=== PATIENT | female | born 2000 | race Caucasian/White ===

== ENCOUNTER 2024-06-06 00:56 | Emergency (ER) | payer OTHER ==
[2024-06-06 01:15] VITALS: RESP 20; TEMP 97.3; O2SAT 99
--- NOTE | 2024-06-06 01:25 | ERPHSYRPT ---
- History of Present Illness Time Seen by Provider: 06/06/24 01:15 Source: patient Exam Limitations: no limitations Patient Subjective Stated Complaint: pt states she walking down the stairs and stepped on a wrench and fell down the stairs Triage Nursing Assessment: pt came into the er via wheelchair; pt transferred self to the cot; pt is axo x4; c/o left ankle injury; pt states 7/10 pain to left ankle, pain worse with standing; swelling present to left ankle; strong left pedal pulse; good cap refill to [facility]; skin PDW; no respiratory distress present; vitals wnl Physician History: 23yo f presents via private vehicle for left ankle injury. 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 Pt reports she scraped her ankle on the stair and it has been hurting and slightly swollen since, she has pain w/ weight bearing but was able to ambulate w/ assistance. Pt does report she hit the back of her head on the concrete, denies any LOC, does not take blood thinners, currently endorses mild TRIVEDI but denies any nausea, vision changes, vomiting, numbness/tingling in extremities. Method of Injury: fell Occurred: just prior to arrival Quality: constant Severity of Pain-Max: moderate Severity of Pain-Current: moderate Lower Extremities Pain: foot: left, ankle: left Allergies/Adverse Reactions: No Known Drug Allergies Allergy (Unverified 06/06/24 01:05) Home Medications: No Reportable Medications [No Reported Medications] 06/06/24 [History] Hx Tetanus, Diphtheria Vaccination/Date Given: No (unsure) Hx Influenza Vaccination/Date Given: No Hx Pneumococcal Vaccination/Date Given: No Immunizations Up to Date: No Travel Risk - International Travel Have you traveled outside of the country in past 3 weeks: No - Emerging Infectious Disease Are you exhibiting symptoms associated with any current EIDs: No - Review of Systems Constitutional: No Symptoms Eyes: No Symptoms Respiratory: No Symptoms Cardiac: No Symptoms Musculoskeletal: Fall, Injury - Past Medical History Pertinent Past Medical History: No - Past Surgical History Past Surgical History: No - Female History Hx Last Menstrual Period: on depot shot Hx Now: No - Social History Smoking Status: Light tobacco smoker Exposure to second hand smoke: Yes Drug Use: none - Social Determinants of Health Will the patient participate in the screening: Yes Do you worry about a steady place to live?: No Do you have any problems with any of the following?: No known problems In the past 12 months,have you had to go without utilities?: No Transportation Issues: No Has anyone in your support network made you feel unsafe?: No Have you or anyone in your house had to go without enough: No - Nursing Vital Signs Nursing Vital Signs: Initial Vital Signs Temperature 97.3 F 06/06/24 01:05 Pulse Rate 85 06/06/24 01:05 Respiratory Rate 20 06/06/24 01:05 Blood Pressure 128/89 06/06/24 01:05 O2 Sat by Pulse Oximetry 99 06/06/24 01:05 Pain Scale Pain Intensity 7 - Physical Exam General Appearance: no apparent distress, alert Eyes, Ears, Nose, Throat Exam: normal ENT inspection, TMs normal Neck Exam: normal inspection, non-tender, full range of motion Cardiovascular/Respiratory Exam: chest non-tender, normal breath sounds, regular rate/rhythm Legs Exam: bilateral leg: non-tender, normal inspection, no evidence of injury Knees Exam: bilateral knee: non-tender, normal inspection, no evidence of injury Ankle Exam: right ankle: non-tender, normal inspection, normal range of motion, no evidence of injury, left ankle: abrasions/laceration (small abrasion over lateral malleolous ), bone tenderness (minimal over lateral malleolous), swelling (minimal on lateral aspect of ankle) Foot Exam: right foot: non-tender, normal inspection, normal range of motion, no evidence of injury, left foot: soft tissue tenderness, swelling Neuro/Tendon Exam: normal sensation, normal motor functions, normal tendon functions Mental Status Exam: alert, oriented x 3, cooperative, other (EOMI, PERRLA, no pronator drift, no nystagmus appreciated, sensation and strength equal and intact diffusely ) Skin Exam: normal color SpO2 Interpretation: normal SpO2: 99 O2 Delivery: Room Air Ordered Tests: Active Orders 24 hr Category Date Time Status Cold Therapy Application ROUTINE Care 06/06/24 01:23 Active ANKLE (3 VIEWS) Stat Exams 06/06/24 01:20 Taken FOOT (MINIMUM 3 VIEWS) Stat Exams 06/06/24 01:20 Taken Medication Summary Discontinued Medications Generic Name Dose Route Start Last Admin Trade Name Marci PRN Reason Stop Dose Admin Acetaminophen 975 mg 06/06/24 01:20 06/06/24 01:27 Acetaminophen 325 Mg Tablet PO 06/06/24 01:21 975 mg STAT ONE Administration Acetaminophen Confirm 06/06/24 01:26 Acetaminophen 325 Mg Tablet Administered 06/06/24 01:27 Dose 975 mg .ROUTE .STK-MED ONE - Progress Progress: improved, pain not gone completely Progress Note: 06/06/24 01:46 no acute fracture on imaging TRIVEDI improved some w/ tylenol will dc home w/ ADAM wrap for ankle and crutches to aid w/ ambulation recommend ice and elevation when able, continue to wear ADAM wrap as needed for support tylenol/ibuprofen for pain return to ED if: become unable to bear weight completely, develop change in sensation in the left foot, develop confusion/vision changes/become difficult to arouse Counseled pt/family regarding: diagnosis, need for follow-up, rad results Medical Desision Making - Diagnostic Testing Diagnostic test were ordered, analyzed, and reviewed by me: Yes Radiological Interpretation: Interpreted by me, Reviewed by me - Risk of complications Minimal Risk: Minimal risk of morbidity - Departure Departure Disposition: Home Clinical Impression: Left ankle sprain Qualifiers: Encounter type: initial encounter Involved ligament of ankle: unspecified ligament Qualified Code(s): S93.402A - Sprain of unspecified ligament of left ankle, initial encounter Condition: Stable Critical Care Time: No Additional Instructions: will dc home w/ ADAM wrap for ankle and crutches to aid w/ ambulation recommend ice and elevation when able, continue to wear ADAM wrap as needed for support tylenol/ibuprofen for pain return to ED if: become unable to bear weight completely, develop change in sensation in the left foot, develop confusion/vision changes/become difficult to arouse
[2024-06-06] MEDS ORDERED: TYLENOL 325 MG ONE (01:26)
[2024-06-06] MEDS: TYLENOL 325 MG PO ONE (01:27)
[2024-06-06 01:54] VITALS: BP 133/94; PULSE 84
--- NOTE | 2024-06-06 08:54 | XRAY ---
Indication: Pain following fall. Comparison: None 3 nonweightbearing views left foot demonstrates incidental subcentimeter anterior calcaneal bone island. No other bony, articular, or soft tissue abnormalities.
--- NOTE | 2024-06-06 08:54 | XRAY ---
Indication: Pain following fall. Comparison: None 3 view left ankle demonstrates incidental subcentimeter anterior calcaneal bone island. No other bony, articular, or soft tissue abnormalities.
== END 2024-06-06 01:53 | disposition home or self-care (01) ==
LOC: ED 00:56
DX: S93.402A Sprain of unspecified ligament of left ankle, initial encounter (principal); W10.8XXA Fall (on) (from) other stairs and steps, initial encounter; R51.9 Headache, unspecified; Z72.0 Tobacco use
CPT/HCPCS: 73610; 73630; 99283; A9270-GY